=== PATIENT | male | born 1935 | race Caucasian/White ===

== ENCOUNTER 2018-04-03 21:28 | Emergency (ER) | payer MEDICARE, OTHER ==
--- NOTE | 2018-04-03 22:35 | ED Physician Documentation ---
PD HPI HEENT - Stated complaint Stated Complaint: BP CONCERN - Chief complaint Chief Complaint: Cardiac - History obtained from History obtained from: Patient - History of Present Illness Timing - onset: How many days ago (2) Timing - duration: Days (2) Timing - details: Abrupt onset, Intermittant Location: Nose (He states he has had nosebleeds recurrently over the last couple of days and was seen and treated for it. He did not use any particular nose sprays. He has felt some sinus pressure after having the nose packed even after the packing was removed. He has not had any fever or chills. He has noticed his blood sugar blood pressure being elevated since that time in the range of 180-200 systolic. He states it is typically 130 or 140.) Review of Systems Constitutional: denies: Fever, Chills, Myalgias Nose: reports: Epistaxis, Sinus pressure / pain. denies: Rhinorrhea / runny nose, Congestion Throat: denies: Dental pain / toothache, Sore throat GI: denies: Nausea, Vomiting, Diarrhea Musculoskeletal: denies: Neck pain, Back pain Neurologic: reports: Headache. denies: Generalized weakness, Near syncope, Confused, Altered mental status, Head injury Endocrine: denies: Easy bruising / bleeding Immunocompromised: denies: Immunocompromised PD PAST MEDICAL HISTORY - Past Medical History Cardiovascular: Hypertension Respiratory: None Neuro: None Endocrine/Autoimmune: None - Allergies Allergies/Adverse Reactions: Allergies Allergy/AdvReac Type Severity Reaction Status Date / Time hydrochlorothiazide Allergy Rash Verified 04/03/18 21:37 - Social History Does the pt smoke?: No Does the pt drink ETOH?: No Does the pt have substance abuse?: No - Family History Family history: reports: Non contributory PD ED PE NORMAL - Vitals Vital signs reviewed: Yes (BP elevated just here. ) - General General: Alert and oriented X 3, No acute distress, Well developed/nourished - HEENT HEENT: Other (left nostril with some redness and irritation. No Bleeding right now. No drainage.) - Neck Neck: Supple, no meningeal sign, No adenopathy - Cardiac Cardiac: RRR, No murmur - Respiratory Respiratory: Clear bilaterally - Abdomen Abdomen: Soft, Non tender - Male Male : Deferred - Rectal Rectal: Deferred - Derm Derm: Normal color, Warm and dry, Other - Extremities Extremities: No edema, No calf tenderness / cord Results - Vitals Vitals: Oxygen O2 Source Room air PD MEDICAL DECISION MAKING - ED course Complexity details: considered differential (He states that his blood pressures typically good with a systolic 130-140. He is just noticed it being elevated during the timeframe of his nosebleed last day or 2. I would not treated specifically and just have him see how it does over the next several days to week as the nose problem resolves. Return sooner if other symptoms develop.), d/w patient Departure - Departure Disposition: 01 Home, Self Care Clinical Impression: High blood pressure Qualifiers: Hypertension type: unspecified Qualified Code(s): I10 - Essential (primary) hypertension Condition: Stable Record reviewed to determine appropriate education?: Yes Follow-Up: Mitzy Washington DO [Primary Care Provider] - Comments: Continue usual medications. I would start using some saline nose spray a few times a day for the nostril and you can use some ointment such as bacitracin or such or even Vaseline to just moisturize the right nostril wall. I think your blood pressure is elevated in response to the recent nosebleeds and sinus pressure. See if it stays consistently elevated over the next several days or more before we would decide if your blood pressure medicine needs adjusting. Discharge Date/Time: 04/03/18 23:52
[2018-04-03 23:52] VITALS: BP 183/87
== END 2018-04-03 23:52 | disposition home or self-care (01) ==
LOC: ED 21:28
DX: I10 Essential (primary) hypertension (principal)
CPT/HCPCS: 99282; 99283

== ENCOUNTER 2021-12-04 11:03 | Outpatient (CLI) | payer MEDICARE, OTHER ==
[2021-12-04 12:05] VITALS: BP 116/75
--- NOTE | 2021-12-04 12:05 | SLEEP CARE CONSULTATION ---
Information from patient questionnaire entered by Carlos Mclain MA. I have reviewed and concur with the information entered by Carlos Mclain MA. This document represents the service I personally performed and the decisions made by me, Odilia Walker ARNP. History of Present Illness Service Date and Time: 12/04/2021 1103 Reason for Visit: New patient, Other (ref by [facility]) Chief Complaint: reports: Unrefreshed sleep, Snoring (possible), Excessive daytime sleepiness, Frequent awakenings at night Date of Onset: "all my life as far as I know" Usual bedtime: 12 - 100 am Time it takes to fall asleep: 15 minutes Snores at night: No (don't think so) Observed to quit breathing while asleep: No Number of times waking at night: 3 Reasons for waking at night: reports: Snoring, Gasping for air (maybe once in a year), Bathroom. denies: Choking Toss, Turn, or Twitch while sleeping: Yes Recalls having dreams: Yes Usually gets out of bed at: 0800 Feels refreshed in the morning: Yes (sometimes; just not a morning person) Morning headache: No Sleepy or fatigued during the day: Yes Ever fallen asleep while driving: No Takes day naps: Yes (2-3 days a week; sleeps for 20-60 minutes) Dreams during day naps: No Prior sleep studies: No Additional HPI information: I had the pleasure of seeing SOURAV SALDAÑA today regarding the possibility of him having a sleep disorder. He was referred here by cardiology. His current complaints are excessive daytime sleepiness especially after eating and frequent night awakenings. He was talking to his PCP about falling asleep when watching TV and waking up 10 minutes later. He was has been doing a lot of testing for cardiology and will follow up in 6 months. He states no new diagnoses came out of testing. He does not have difficulty sleeping but will wake up about 3 times a night for the bathroom. He states he has not been told that he snores, even by ex- , but has woke himself up snoring about 4 times or so through the years. He states he will sometimes wake up feeling refreshed. He feels his memory is getting worse lately. He only naps when he does not have anything to do or sometimes when watching TV. He does have hypertension and diabetes. - Parasomnia Symptoms Ever been unable to move upon waking from sleep: No Walks in sleep: No Talks in sleep: No Ever acted out dreams in sleep: No Ever felt weak in the knees when startled or emotional: No Bothered by creepy, crawly, restless sensations in legs: Yes (sometimes) Problems with memory or concentration: Yes (memory and concentration (gets distracted)) Subjective Initial [place] Sleepiness Scale score: 11 (12/04/2021) Past Medical History Past Medical History: reports: Hypertension, Diabetes (type 2) Social History The patient's occupation is a RE. Patient is Single and lives in [place]. Have you smoked in the past 12 months: No Cigarettes per day (20/pack): 10 Years of smokin Quit date: 1976 Smoking Pack Years: 20.0 Alcohol use: Yes Alcohol amount and frequency: 1 x weekly Caffeine use: Yes Caffeine amount and frequency: 1 x daily Family History Family history of sleep disordered breathing: No (unknown) Allergies and Home Medications Known drug allergies: Yes Drug allergies reviewed: Yes (HCTZ) Home medication list reviewed: Yes Allergy and home medication list: Allergies hydrochlorothiazide Allergy (Verified 04/03/18 21:37) Rash Hydralazine - rash Medications: Amlodipine 10mg q.d. Aspirin 81mg q.d. Atorvastatin 20mg q.d. Clonidine .3mg 2 g.d. Finasteride 5mg q.d. Furosemide 20mg 2 g.d Losartan 100mg q.d. Metformin 500mg 2 q.d. Potassium Chloride 10meq 2 q.d. Verified by JITENDRA Isaac 12/04/2021 1110 Review of Systems Weight gain over past 5 years: 0 Weight loss over past 5 years: 0 Cardiovascular: reports: high blood pressure Gastrointestinal: reports: heartburn (occasional) Urinary: reports: frequency Ear/Nose/Throat: reports: nasal congestion, dry mouth/throat (random). denies: tonsillectomy Endocrine: reports: sluggishness Physical Exam Vital signs obtained and entered by: JITENDRA ISAAC, Blood Pressure: 116/75 (r 20, p 70, right,) Cuff size: wrist Heart Rate: 68 O2 Saturation: 97 (n95) Height: 5 ft 4 in Weight: 175 lb 3.2 oz (clothes) Weight change since last visit: maintain weight Body Mass Index: 30.0 BMI Classification: Obese Neck circumference: 15.5 (inches) Mouth and throat: narrow oropharynx Soft palate: long Hard palate: normal Uvula: normal Uvula visualization: 25% Mallampati Class III Tongue: enlarged in size with teeth castillo on lateral edges Tonsils: 1+ Neck: normal w/o lymphadenopathy or thyromegaly Heart: regular rate and rhythm Lungs: clear bilaterally Impression and Plan 1. Suspected Obstructive Sleep Apnea-Hypopnea Syndrome, as suggested by a history of possible snoring, frequent awakening during the night, unrefreshed sleep, cognitive impairment, and excessive daytime sleepiness. Narrow oropharynx and obesity are common predisposing factors for obstructive sleep apnea-hypopnea syndrome. I recommend proceeding to polysomnography to confirm the diagnosis and to assess severity. If the patient has significant sleep disordered breathing, a manual CPAP titration study will also be performed to find the optimal treatment pressure. I informed the patient of what the sleep studies involve and after some discussion, obtained agreement to proceed. The pathophysiology of obstructive sleep apnea-hypopnea syndrome was discussed with the patient and health risks of cardiovascular and cerebrovascular disease if not treated. Risks of drowsy driving discussed in detail and patient advised to avoid long distance driving and to green chain puller at the first sign of drowsiness. Patient agreed to plan. * Schedule polysomnography * Avoid long distance driving or driving when feeling sleepy. * Avoid alcohol, sedative and muscle relaxant around bedtime. * Attempt to lose weight. * Review instructions provided by trained office staff on how to prepare for the sleep study. * Return for follow-up after sleep study completed. Counseling Topics: Weight loss health impact Visit Type: In Office Time Spent with Patient (minutes): 32 Provider Statement: I spent 100% of the Face to Face Visit with the patient with greater than 50% spent counseling the patient and coordination of care.
== END 2021-12-04 11:04 | disposition home or self-care (01) ==
LOC: SC 11:03
PROVIDERS: ATTEND Nurse Practitioner Family
DX: G47.10 Hypersomnia, unspecified (principal); R53.83 Other fatigue; G47.8 Other sleep disorders; R06.83 Snoring; E11.9 Type 2 diabetes mellitus without complications; I10 Essential (primary) hypertension; E66.9 Obesity, unspecified; Z68.30 Body mass index [BMI] 30.0-30.9, adult; Z87.891 Personal history of nicotine dependence; Z79.84 Long term (current) use of oral hypoglycemic drugs; Z79.899 Other long term (current) drug therapy
CPT/HCPCS: 99203; G0463; 99212

== ENCOUNTER 2021-12-17 19:35 | Outpatient (CLI) | payer MEDICARE, OTHER | END 2021-12-17 19:36 | disposition home or self-care (01) | LOC: SC 19:35 | PROVIDERS: ATTEND Nurse Practitioner Family | DX: G47.33 Obstructive sleep apnea (adult) (pediatric) (principal); G47.61 Periodic limb movement disorder | CPT/HCPCS: 95810 ==

== ENCOUNTER 2022-01-01 14:22 | Outpatient (CLI) | payer MEDICARE, OTHER ==
[2022-01-01 15:05] VITALS: BP 200/80
--- NOTE | 2022-01-01 15:05 | SLEEP CARE CONSULTATION ---
Information from patient questionnaire entered by Tommy Yoo. I have reviewed and concur with the information entered by Tommy Yoo. This document represents the service I personally performed and the decisions made by , Odilia Walker ARNP. History of Present Illness Service Date and Time: 01/01/2022 1422 Initial [place] Sleepiness Scale score: 11 Current Le[place] Sleepiness Scale score: 9 (01/01/22) Additional HPI information: SOURAV SALDAÑA returns for follow up and results of the recently performed polysomnography. I explained the pathophysiology behind obstructive sleep apnea. We then spent quite a bit of time discussing different treatment options. For mild obstructive sleep apnea, surgery and oral appliance are alternatives to nasal CPAP therapy but in moderate or severe cases, nasal CPAP is the most effective and reliable treatment. Because apnea is primarily in supine position, then positional management therapy could be effective. Methods discussed such as positioning with pillows to prevent supine sleep. I reviewed the impact of weight changes on sleep apnea and strongly recommended losing weight. Sleep Study - Results Type of Sleep Study: Polysomnography (DONE 12/17/21) Prior sleep studies: No Polysomnography/Home Sleep Study results: IMPRESSION: The quality of the study is good. The patient had poor sleep efficiency as the patient was awake for the most past of the night. The sleep architecture was absr. Respiratory monitoring showed mild obstructive sleep apnea-hypopnea (AHI = 7.5) associated with frequent arousals, oxyhemoglobin desaturation and mild hypoxia (marquita oxygen saturation of 87%). The respiratory events occurred mainly during REM sleep (supine AHI = 12.6; nonsupine = 5.89). Snore was light to loud in intensity. There was moderate periodic leg movement of sleep not contributing to the sleep fragmentation. Cardiac rhythm was normal sinus rhythm with occasional premature atrial contractions No abnormal behavior (parasomnia) observed during the night. Allergies and Home Medications Home medication list reviewed: Yes (no changes) Allergy and home medication list: Allergies hydralazine Allergy (Verified 12/04/21 12:04) Rash hydrochlorothiazide Allergy (Verified 04/03/18 21:37) Rash Review of Systems Review of systems same as previous: Yes (no changes) Physical Exam Vital signs obtained and entered by: LALITA AMARO Blood Pressure: 200/80 (left arm ) Cuff size: regular Heart Rate: 67 O2 Saturation: 97 Height: 5 ft 4 in Weight: 172 lb Body Mass Index: 29.5 BMI Classification: Overweight Impression and Plan 1. Obstructive Sleep Apnea-Hypopnea Syndrome, mild, with lowest oxygen s aturation of 87%. Obviously this is the cause of the patients symptoms of unrefreshed sleep, and excessive daytime sleepiness. Positive pressure therapy could benefit hypertension and diabetes. Patient's non-supine AHI was 5.8. He could reduce his apneas by sleeping non-supine. Since patients apnea is primarily in supine position, patient advised to try positional therapy while he thought about different therapy for his sleep apnea and he agreed with plan. He is also advised to lose weight as this will reduce snoring and apnea. Follow up is scheduled for one month. 2. Periodic limb movement, moderate, that did not fragment patients sleep. Periodic limb movement of sleep (PLMS) is characterized by episodes of repetitive limb movements that occur during sleep and usually involve the lower limbs. Caffeine can aggravate PLMS and should be avoided. Sleep hygiene methods can also improve sleep as well as lifestyle changes such as regular exercise. Patient was advised that no treatment is needed at this time. If symptoms increase, then further evaluation is indicated. 3. Elevated blood pressure in person with hypertension. His blood pressure today at initial assessment was 200/80 and a recheck was 192/82. He denied any chest pain, shortness of breath, headaches or dizziness. He states that his pressure has been elevated lately, especially in the morning, but has been running 140s systolic at home. He will follow up with his PCP. * Positional therapy while he thinks about choices in therapy. * Attempt to lose weight. * Avoid alcohol consumption near bedtime. * Avoid supine sleep * Return in 1-2 months. Counseling Topics: Weight loss health impact Visit Type: In Office Time Spent with Patient (minutes): 20 Provider Statement: I spent 100% of the Face to Face Visit with the patient with greater than 50% spent counseling the patient and coordination of care.
== END 2022-01-01 14:23 | disposition home or self-care (01) ==
LOC: SC 14:22
PROVIDERS: ATTEND Nurse Practitioner Family
DX: G47.33 Obstructive sleep apnea (adult) (pediatric) (principal); G47.61 Periodic limb movement disorder; I10 Essential (primary) hypertension; E66.3 Overweight; Z68.29 Body mass index [BMI] 29.0-29.9, adult
CPT/HCPCS: 99213; G0463; 99212

== ENCOUNTER 2022-03-05 12:44 | Outpatient (CLI) | payer MEDICARE, OTHER ==
[2022-03-05 13:18] VITALS: BP 126/64
--- NOTE | 2022-03-05 13:18 | SLEEP CARE CONSULTATION ---
Information from patient questionnaire entered by Essie Pritchett. I have reviewed and concur with the information entered by Essie Pritchett. This document represents the service I personally performed and the decisions made by me, Odilia Walker ARNP. History of Present Illness Service Date and Time: 03/05/2022 1244 Previous diagnosis: Mild, Obstructive Sleep Apnea-Hypopnea Syndrome AHI: 7.5 (in 2021) Reason for follow up: other (2 MONTH F/U POSITIONAL THERAPY) Prior sleep studies: Yes Year and Where: 12/27 [facility] additional information: SOURAV SALDAÑA was diagnosed to have mild, AHI 7.5, obstructive sleep apnea- hypopnea syndrome and returned today for Positional therapy two month follow-up. Sleep Study - Results Prior sleep studies: No CPAP Compliance Data Compliance data discussion: He has been mostly sleeping on his sides and feels he is able to do this without difficulty. He will occasionally lay on his back but then ends up on his side. Subjective On therapy, patient: reports: sleeping better, more rested overall Initial [place] Sleepiness Scale score: 11 Current [place] Sleepiness Scale score: 5 (03/05/2022) Allergies and Home Medications Drug allergies reviewed: Yes (hydralazine; hydrochlorothiazide) Home medication list reviewed: Yes (Carvidiolol) Review of Systems Review of systems same as previous: Yes (kidneys being looked at) Physical Exam Vital signs obtained and entered by: ESSIE Canales MA Blood Pressure: 126/64 (LEFT ARM) Cuff size: regular Heart Rate: 68 O2 Saturation: 96 Height: 5 ft 4 in Weight: 171 lb Body Mass Index: 29.3 BMI Classification: Overweight Impression and Plan 1. Obstructive Sleep Apnea-Hypopnea Syndrome, mild. Using positional therapy, the patient has felt more rested overall. Patient states he is able to sleep mostly on his side but phil occasionally sleep on his back. He is currently seeing a lot of doctors for his kidneys and heart. He is scheduled for a kidney biopsy. He has also been referred to oncology. He is not wanting to try any other therapy for his sleep apnea at this time. We discussed him continuing to try to sleep non-supine and to follow up in office if he should decide to change therapy. He voiced understanding and agreement with plan. Patient's apnea severity and rationale for treatment to reduce apnea, improve sleep quality and reduce cardiovascular and cerebrovascular events was reviewed. I also reviewed the benefit of consistent device use of CPAP for hypertension and diabetes. 2. Overweight, unspecified. Currently patients BMI is 29.3. Obesity increases the risk of apnea, CPAP pressure requirements and overall health risks especially cardiovascular and diabetes. Thus patient is advised to try to lose weight. He was advised to concentrate on eating nutrient rich foods to support his body's needs. In addition, patient encouraged to get regular exercise. He voiced understanding. * Continue Positional therapy * Attempt to lose weight * Call this office if any problems * Return for follow up in 6 months, or sooner if concerns arise Counseling Topics: Weight loss health impact Visit Type: In Office Time Spent with Patient (minutes): 16 Provider Statement: I spent 100% of the Face to Face Visit with the patient with greater than 50% spent counseling the patient and coordination of care.
== END 2022-03-05 12:45 | disposition home or self-care (01) ==
LOC: SC 12:44
PROVIDERS: ATTEND Nurse Practitioner Family
DX: G47.33 Obstructive sleep apnea (adult) (pediatric) (principal); E66.3 Overweight; Z68.29 Body mass index [BMI] 29.0-29.9, adult
CPT/HCPCS: 99212; G0463